=== PATIENT | female | born 1995 | race Caucasian/White ===

== ENCOUNTER 2020-05-07 15:10 | Emergency (ER) | payer SELFPAY ==
[2020-05-07] MEDS ORDERED: TRAMADOL HCL 50 MG TABLET PO ONE (16:45)
--- NOTE | 2020-05-07 17:11 | ER Document Report ---
ED General - General Chief Complaint: Nausea/Vomiting Stated Complaint: NAUSEA/VOMITING Notes: Patient is a 25-year-old white female with a history of diabetes and gastr oparesis who presents to the emergency department with a chief complaint of gastroparesis flare. She states this began couple days ago. She states that she was seeing a field map technician in [facility] at the [facility] but she is recently moved here. She states she has had several endoscopies and gastric emptying studies and H. pylori tests and was found to have gastroparesis. She cannot take Reglan due to severe allergy. Reports she takes a scopolamine patch. She states recently she has had the same pains as her gastroparesis in the epigastric region accompanied by nausea and vomiting and decreased oral intake secondary to the pain. Denies any diarrhea or fever. No known sick contacts or known exposures to COVID-19. She states this feels very straightforward. Reports that she is taken tramadol in the past for pain relief. - Related Data Allergies/Adverse Reactions: acetaminophen [From Tylenol] Allergy (Verified 05/07/20 15:44) aspirin Allergy (Verified 05/07/20 15:44) codeine Allergy (Verified 05/07/20 15:44) metoclopramide [From Reglan] Allergy (Verified 05/07/20 15:44) omeprazole Allergy (Verified 05/07/20 15:44) peanut Allergy (Verified 05/07/20 15:44) soy Allergy (Verified 05/07/20 15:44) wheat Allergy (Verified 05/07/20 15:44) Past Medical History - Social History Smoking Status: Never Smoker Chew tobacco use (# tins/day): No Frequency of alcohol use: None Drug Abuse: None Family History: Reviewed & Not Pertinent Review of Systems - Review of Systems Constitutional: denies: Fever EENT: denies: Throat pain Cardiovascular: denies: Chest pain Respiratory: denies: Cough Gastrointestinal: Abdominal pain, Nausea, Vomiting. denies: Diarrhea Genitourinary: denies: Burning, Dysuria Female Genitourinary: denies: Vaginal discharge Musculoskeletal: denies: Muscle pain Skin: denies: Rash Hematologic/Lymphatic: denies: Easy bleeding Neurological/Psychological: denies: Headaches Physical Exam - Vital signs Vitals: Temp 98.4 F 05/07/20 15:44 - General General appearance: Appears well, Alert In distress: None - Respiratory Respiratory status: No respiratory distress Chest status: Nontender Breath sounds: Normal Chest palpation: Normal - Cardiovascular Rhythm: Regular Heart sounds: Normal auscultation Murmur: No - Abdominal Inspection: Normal Distension: No distension Bowel sounds: Normal Tenderness: Tender - Epigastric left upper and right upper quadrant Organomegaly: No organomegaly - Neurological Neuro grossly intact: Yes Cognition: Normal Orientation: AAOx4 - Psychological Associated symptoms: Normal affect, Normal mood - Skin Skin Temperature: Warm Skin Moisture: Dry Skin Color: Normal Course - Re-evaluation Re-evalutation: 05/07/20 18:43 Reevaluation at this time, patient is resting comfortably in the room. She is in no acute distress. She is stable and appropriate for discharge and outpatient follow-up. We will send her home with tramadol and Bactrim for the UTI on urinalysis. She will get established with a field map technician and primary here in the area now that she lives here. Counseled her regarding the importance of outpatient follow-up and advised that she return here any ER immediately with any new, persistent or worsening symptoms. She verbalized understood and agreed. - Vital Signs Vital signs: Temp Pulse Resp BP Pulse Ox 98.4 F 05/07/20 15:44 - Laboratory Result Diagrams: 05/07/20 15:40 05/07/20 15:40 Laboratory results interpreted by me: 05/07/20 05/07/20 05/07/20 15:40 15:40 15:40 Hgb 10.8 L Hct 32.6 L MCV 78 L MCH 25.9 L RDW 17.7 H Potassium 3.5 L Chloride 109 H AST 60 H ALT 74 H Creatine Kinase NT-Pro-B Natriuret Pep Urine Protein 30 H Urine Ketones TRACE H Urine Urobilinogen 2.0 H Leukocyte Esterase Rfl MODERATE H 05/07/20 05/07/20 15:40 15:40 Hgb Hct MCV MCH RDW Potassium Chloride AST ALT Creatine Kinase 394 H NT-Pro-B Natriuret Pep 643 H Urine Protein Urine Ketones Urine Urobilinogen Leukocyte Esterase Rfl Discharge - Discharge Clinical Impression: Gastroparesis Condition: Stable Disposition: HOME, SELF-CARE Instructions: Abdominal Pain ([facility]) Additional Instructions: Follow-up with your regular doctor in 2 to 3 days for reevaluation. Return here or any ER immediately with any new, persistent or worsening symptoms. Prescriptions: Tramadol HCl [Ultram 50 mg Tablet] 50 mg PO Q6HP PRN #12 tablet PRN Reason: Sulfamethoxazole/Trimethoprim [Bactrim Ds Tablet] 1 each PO BID #19 tablet Referrals: ALBERT MAYEN MD [ACTIVE STAFF] - Follow up as needed
[2020-05-07 17:26] LABS: ABSOLUTE BASOPHILS # (AUTO) 0.1 10^3/uL (0.0-0.2); ABSOLUTE EOSINOPHILS # (AUTO) 0.1 10^3/uL (0.0-0.6); ABSOLUTE LYMPHOCYTES (AUTO) 1.8 10^3/uL (0.5-4.7); ABSOLUTE MONOCYTES (AUTO) 0.6 10^3/uL (0.1-1.4); ABSOLUTE NEUT (AUTO) 5.7 10^3/uL (1.7-8.2); BASOPHILS % (AUTO) 0.9 % (0-2); EOSINOPHILS % (AUTO) 1.6 % (0-6); HEMATOCRIT 32.6 % (36.0-47.0); HEMOGLOBIN 10.8 g/dL (12.0-15.5); LYMPHOCYTES % (AUTO) 21.6 % (13-45); MEAN CORPUSCULAR HEMOGLOBIN 25.9 pg (27.0-33.4); MEAN CORPUSCULAR HGB CONC 33.3 g/dL (32.0-36.0); MEAN CORPUSCULAR VOLUME 78 fl (80-97); PLATELET COUNT 350 10^3/uL (150-450); RED BLOOD COUNT 4.19 10^6/uL (3.72-5.28); RED CELL DISTRIBUTION WIDTH 17.7 % (11.5-14.0); SEGMENTED NEUTROPHILS % (AUTO) 68.9 % (42-78); TOTAL CELLS COUNTED % (AUTO) 100 %; WHITE BLOOD COUNT 8.2 10^3/uL (4.0-10.5)
[2020-05-07 17:31] LABS: APPEARANCE,URINE TURBID; BILIRUBIN,URINE NEGATIVE (NEGATIVE); COLOR,URINE AMBER; GLUCOSE, URINE NEGATIVE (NEGATIVE); KETONES,URINE TRACE mg/dL (NEGATIVE); PROTEIN,URINE 30 mg/dL (NEGATIVE); URINE SPECIFIC GRAVITY 1.018
[2020-05-07 17:34] LABS: ALBUMIN 4.1 g/dL (3.5-5.0); ALKALINE PHOSPHATASE 67 U/L (38-126); ANION GAP 6 (5-19); ASPARTATE AMINO TRANSFERASE 60 U/L (14-36); BILIRUBIN,TOTAL 0.8 mg/dL (0.2-1.3); BLOOD UREA NITROGEN 8 mg/dL (7-20); CARBON DIOXIDE 25 mmol/L (22-30); CHLORIDE 109 mmol/L (98-107); GLUCOSE 104 mg/dL (75-110); POTASSIUM 3.5 mmol/L (3.6-5.0); TOTAL PROTEIN 6.9 g/dL (6.3-8.2)
[2020-05-07 18:21] LABS: CREATINE KINASE MB 0.54 ng/mL (<4.55); NT PRO BNP 643 pg/mL (<125)
[2020-05-07 18:22] LABS: TROPONIN I < 0.012 ng/mL
[2020-05-07] MEDS ORDERED: FLUCONAZOLE 100 MG TABLET PO ONE (18:39)
[2020-05-07] MEDS ORDERED: SULFAMETHOXAZOLE/TRIMETHOPRIM 800-160 MG TABLET PO ONE (18:39)
[2020-05-07 19:07] VITALS: BP 148/91
== END 2020-05-07 19:03 | disposition home or self-care (01) ==
LOC: ER 15:10
DX: E11.43 Type 2 diabetes mellitus with diabetic autonomic (poly)neuropathy (principal); K31.84 Gastroparesis; R11.2 Nausea with vomiting, unspecified; Z88.6 Allergy status to analgesic agent; Z91.010 Allergy to peanuts
CPT/HCPCS: 36415; 80053; 81001; 82550; 82553; 83690; 83880; 84484; 85025; 99283

== ENCOUNTER 2020-06-09 16:46 | Emergency (ER) | payer SELFPAY ==
--- NOTE | 2020-06-09 17:52 | ER Document Report ---
ED Medical Screen (RME) - General Chief Complaint: Lower Abdominal Pain Stated Complaint: ABDOMINAL PAIN 4 WEEKS PREG Time Seen by Provider: 06/09/20 17:48 Mode of Arrival: Ambulatory Information source: Patient Notes: HPI; 25-year-old female 2 para 1 presents to the emergency room complaining of right lower quadrant pain that started earlier today. LMP May 01. States she had a positive home test about 3 to 4 days ago. Denies any bleeding, no discharge. No current OB care. Describes the pain as aching and cramping no meds for pain. PE: Alert and oriented x3. Lungs: Clear to auscultation without rales, rhonchi, wheezes. Heart: Regular rate and rhythm without murmurs, rubs, gallops. I have greeted and performed a rapid initial assessment of this patient. A c omprehensive ED assessment and evaluation of the patient, analysis of test results and completion of the medical decision making process will be conducted by additional ED providers. I have specifically instructed the patient or family members with the patient to immediately return to any nursing staff should anything change in the patient's condition or with their chief complaint. TRAVEL OUTSIDE OF THE [place] IN LAST 30 DAYS: No - Related Data Allergies/Adverse Reactions: acetaminophen [From Tylenol] Allergy (Verified 05/07/20 15:44) aspirin Allergy (Verified 05/07/20 15:44) codeine Allergy (Verified 05/07/20 15:44) metoclopramide [From Reglan] Allergy (Verified 05/07/20 15:44) omeprazole Allergy (Verified 05/07/20 15:44) peanut Allergy (Verified 05/07/20 15:44) soy Allergy (Verified 05/07/20 15:44) wheat Allergy (Verified 05/07/20 15:44) Physical Exam - Vital signs Vitals: Temp Pulse Resp BP Pulse Ox 98.7 F 89 18 145/79 H 99 06/09/20 17:33 06/09/20 17:33 06/09/20 17:33 06/09/20 17:33 06/09/20 17:33 Course - Vital Signs Vital signs: Temp Pulse Resp BP Pulse Ox 98.7 F 89 18 145/79 H 99 06/09/20 17:33 06/09/20 17:33 06/09/20 17:33 06/09/20 17:33 06/09/20 17:33
[2020-06-09 18:16] LABS: ABSOLUTE BASOPHILS # (AUTO) 0.1 10^3/uL (0.0-0.2); ABSOLUTE EOSINOPHILS # (AUTO) 0.2 10^3/uL (0.0-0.6); ABSOLUTE LYMPHOCYTES (AUTO) 1.7 10^3/uL (0.5-4.7); ABSOLUTE MONOCYTES (AUTO) 0.5 10^3/uL (0.1-1.4); ABSOLUTE NEUT (AUTO) 6.7 10^3/uL (1.7-8.2); BASOPHILS % (AUTO) 0.9 % (0-2); EOSINOPHILS % (AUTO) 2.5 % (0-6); HEMATOCRIT 33.6 % (36.0-47.0); HEMOGLOBIN 11.2 g/dL (12.0-15.5); LYMPHOCYTES % (AUTO) 18.6 % (13-45); MEAN CORPUSCULAR HEMOGLOBIN 26.3 pg (27.0-33.4); MEAN CORPUSCULAR HGB CONC 33.3 g/dL (32.0-36.0); MEAN CORPUSCULAR VOLUME 79 fl (80-97); MONOCYTES % (AUTO) 5.8 % (3-13); PLATELET COUNT 367 10^3/uL (150-450); RED BLOOD COUNT 4.26 10^6/uL (3.72-5.28); RED CELL DISTRIBUTION WIDTH 17.6 % (11.5-14.0); SEGMENTED NEUTROPHILS % (AUTO) 72.2 % (42-78); TOTAL CELLS COUNTED % (AUTO) 100 %; WHITE BLOOD COUNT 9.3 10^3/uL (4.0-10.5)
[2020-06-09 18:27] LABS: APPEARANCE,URINE SLIGHTLY-CLOUDY; BILIRUBIN,URINE NEGATIVE (NEGATIVE); CALCIUM OXALATE CRYSTALS,URINE RARE /HPF; COLOR,URINE YELLOW; GLUCOSE, URINE NEGATIVE (NEGATIVE); KETONES,URINE NEGATIVE (NEGATIVE); LEUKOCYTE ESTERASE,URINE TRACE (NEGATIVE); NITRITE,URINE NEGATIVE (NEGATIVE); PROTEIN,URINE 30 mg/dL (NEGATIVE); URINE SPECIFIC GRAVITY 1.021
[2020-06-09 18:35] LABS: ALBUMIN 4.1 g/dL (3.5-5.0); ALKALINE PHOSPHATASE 59 U/L (38-126); ASPARTATE AMINO TRANSFERASE 36 U/L (14-36); BILIRUBIN,TOTAL 0.6 mg/dL (0.2-1.3); BLOOD UREA NITROGEN 8 mg/dL (7-20); CALCIUM 9.3 mg/dL (8.4-10.2); CARBON DIOXIDE 28 mmol/L (22-30); CHLORIDE 105 mmol/L (98-107); GLUCOSE 109 mg/dL (75-110); POTASSIUM 4.1 mmol/L (3.6-5.0); TOTAL PROTEIN 6.9 g/dL (6.3-8.2)
--- NOTE | 2020-06-09 18:54 | RADIOLOGY REPORT (SQ) ---
EXAM DESCRIPTION: U/S OB TRANSVAG W/DOPPLER IMAGES COMPLETED DATE/TIME: 06/09/2020 6:38 pm REASON FOR STUDY: rlq pain COMPARISON: None. TECHNIQUE: Transvaginal static and realtime grayscale images acquired of the pelvis. Additional carla cted spectral and color Doppler images recorded. All images stored on PACs. CLINICAL AGE: 5 week 4 day. B[facility]02/05/2021. LIMITATIONS: None. FINDINGS: UTERUS: No visualized intrauterine . There is a round cystic lesion in the cervi samir canal. RIGHT ADNEXA: Normal ovary with normal vascular flow. No adnexal free fluid. No adnexal masses. Multiple follicles. LEFT ADNEXA: Normal ovary with normal vascular flow. No adnexal free fluid. No adnexal masses. Multiple follicles. FREE FLUID: None. OTHER: No other significant finding. IMPRESSION: NO VISUALIZED INTRAUTERINE . ROUND CYSTIC LESION IN THE CERVICAL CANAL COULD B E AN INCIDENTAL NABOTHIAN CYST. CANNOT EXCLUDE A SMALL GESTATIONAL SAC WHICH IS ECTOPICALLY IMPLANTE D IN THE CERVIX. MEASUREMENTS WOULD CORRESPOND WITH A 5 WEEK 2 DAY GESTATION. bHCG LEVEL NOT AVAILABLE FOR CORRELATION WITH US FINDINGS. FOLLOW-UP ULTRASOUND AND SERIAL BHCG LEVELS STRONGLY RECOMMENDED TO ACCURATELY ASSESS STATU S. TECHNICAL DOCUMENTATION: JOB ID: [id number] 2010 [employer]- All Rights Reserved Reading location - IP/workstation name: [email or web address]
[2020-06-09 18:55] LABS: ANION GAP 4 (5-19)
[2020-06-09] MEDS ORDERED: CEPHALEXIN 500 MG CAPSULE PO ONE (18:57)
--- NOTE | 2020-06-09 18:57 | ER Document Report ---
ED GI/ - General Chief Complaint: Lower Abdominal Pain Stated Complaint: ABDOMINAL PAIN 4 WEEKS PREG Time Seen by Provider: 06/09/20 17:48 Primary Care Provider: [facility] [Provider Group] - Follow up as needed [facility] [NO LOCAL MD] - Follow up tomorrow Mode of Arrival: Ambulatory Information source: Patient Notes: Patient presents complaining of lower pelvic pain that started today. Patient states she has had similar pain off and on over the past 2 weeks. Patient denies any vaginal bleeding or discharge. Patient denies any concern about STI. Patient states she just recently had a positive test 4 days ago. Patient is G2, P1. Patient denies any urinary symptoms. Patient does states she has an upcoming appointment with an GAS SINGER in 4 days. TRAVEL OUTSIDE OF THE [place] IN LAST 30 DAYS: No - HPI Patient complains to provider of: Pelvic pain, . No: Vaginal discharge, Vomiting Onset: Other - Off and on x2 weeks Timing/Duration: Waxing and waning Quality of pain: Achy Pain Level: 1 Location: Pelvis Vaginal bleeding (Compared to normal period): None Menstrual period history: Sexual history: Active. denies: STD exposure Associated symptoms: denies: Dysuria, Fever, Nausea, Urinary hesitancy, Urinary frequency, Urinary retention, Urinary urgency, Vaginal discharge, Vomiting Exacerbated by: Denies Relieved by: Denies Similar symptoms previously: No Recently seen / treated by doctor: Yes - Related Data Allergies/Adverse Reactions: acetaminophen [From Tylenol] Allergy (Verified 05/07/20 15:44) aspirin Allergy (Verified 05/07/20 15:44) codeine Allergy (Verified 05/07/20 15:44) metoclopramide [From Reglan] Allergy (Verified 05/07/20 15:44) omeprazole Allergy (Verified 05/07/20 15:44) peanut Allergy (Verified 05/07/20 15:44) soy Allergy (Verified 05/07/20 15:44) wheat Allergy (Verified 05/07/20 15:44) Home Medications: venlafaxine, vitatab, claritin, singulair Past Medical History - General Information source: Patient - Social History Smoking Status: Never Smoker Chew tobacco use (# tins/day): No Frequency of alcohol use: None Drug Abuse: None Occupation: None Lives with: Spouse/Significant other Family History: Reviewed & Not Pertinent Patient has homicidal ideation: No - Past Medical History Cardiac Medical History: Reports: Hx Hypercholesterolemia Pulmonary Medical History: Reports: Hx Asthma GI Medical History: Reports: Other - Gastroparesis Past Surgical History: Reports: Hx Cholecystectomy Review of Systems - Review of Systems Constitutional: No symptoms reported. denies: Fever, Recent illness EENT: No symptoms reported Cardiovascular: No symptoms reported. denies: Chest pain Respiratory: No symptoms reported. denies: Cough Gastrointestinal: Abdominal pain. denies: Diarrhea, Nausea, Vomiting Genitourinary: No symptoms reported. denies: Dysuria, Flank pain Female Genitourinary: . denies: Vaginal discharge, Vaginal bleeding Musculoskeletal: No symptoms reported. denies: Back pain Skin: No symptoms reported Hematologic/Lymphatic: No symptoms reported Neurological/Psychological: No symptoms reported Physical Exam - Vital signs Vitals: Temp Pulse Resp BP Pulse Ox 98.7 F 89 18 145/79 H 99 06/09/20 17:33 06/09/20 17:33 06/09/20 17:33 06/09/20 17:33 06/09/20 17:33 - General General appearance: Appears well, Alert In distress: None - HEENT Head: Normocephalic, Atraumatic Eyes: Normal Conjunctiva: Normal Nasal: Normal Mouth/Lips: Normal Mucous membranes: Normal Neck: Normal, Supple. No: Lymphadenopathy - Respiratory Respiratory status: No respiratory distress Chest status: Nontender Breath sounds: Normal. No: Rales, Rhonchi, Stridor, Wheezing Chest palpation: Normal - Cardiovascular Rhythm: Regular Heart sounds: S1 appreciated, S2 appreciated Murmur: No - Abdominal Inspection: Morbidly Obese Distension: No distension Bowel sounds: Normal Tenderness: Tender - suprapubic. No: McBurney's point, London's sign, Guarding Organomegaly: No organomegaly - Genitourinary External exam: Normal Speculum exam: Cervix closed, Vaginal discharge Vaginal bleeding: None Bimanuel exam: Normal. No: Cervical motion tender, Adnexal tenderness Notes: MACIEL Knox as standby - Back Back: Normal, Nontender. No: CVA tenderness - Extremities General upper extremity: Normal inspection, Nontender, Normal ROM General lower extremity: Normal inspection, Nontender, Normal ROM - Neurological Neuro grossly intact: Yes Cognition: Normal Katia Coma Scale Eye Opening: Spontaneous [place] Coma Scale Verbal: Oriented [place] Coma Scale Motor: Obeys Commands [place] Coma Scale Total: 15 - Psychological Associated symptoms: Normal affect, Normal mood - Skin Skin Temperature: Warm Skin Moisture: Dry Skin Color: Normal Course - Re-evaluation Re-evalutation: 06/09/20 19:03 Patient's quantitative hCG test negative, patient with findings on ultrasound worrisome for possible nabothian cyst, will perform pelvic examination to further evaluate patient's pelvic pain symptoms. 06/09/20 19:35 Patient with vaginal discharge, gonorrhea chlamydia tests are pending at this time, patient treated empirically. Patient advised of negative quantitative hCG test. Patient encouraged to follow-up with her cotton wringer for further evaluation. Patient without any right lower quadrant tenderness, no for appendicitis at this time. Patient encouraged to return for any new or worsening symptoms at this time. Patient presents with abdominal pain without signs of peritonitis or other life-threatening or serious etiology. Patient appears stable for discharge and has been instructed to return immediately if the symptoms worsen in any way, or in 12 hours if not improved for reevaluation. The patient has been instructed to return if the symptoms worsen or change in any way. - Vital Signs Vital signs: Temp Pulse Resp BP Pulse Ox 98.7 F 89 18 145/79 H 99 06/09/20 17:33 06/09/20 17:33 06/09/20 17:33 06/09/20 17:33 06/09/20 17:33 - Laboratory Result Diagrams: 06/09/20 17:55 06/09/20 17:55 Laboratory results interpreted by me: 06/09/20 06/09/20 06/09/20 17:55 17:55 17:55 Hgb 11.2 L Hct 33.6 L MCV 79 L MCH 26.3 L RDW 17.6 H Anion Gap 4 L Urine Protein 30 H Urine Blood SMALL H Urine Urobilinogen 4.0 H Ur Leukocyte Esterase TRACE H Urine Ascorbic Acid 40 H 06/09/20 19:37 Labs- All tests 24 hr 06/09/20 06/09/20 06/09/20 17:55 17:55 17:55 WBC 9.3 RBC 4.26 Hgb 11.2 L Hct 33.6 L MCV 79 L MCH 26.3 L MCHC 33.3 RDW 17.6 H Plt Count 367 Lymph % (Auto) 18.6 Colbert % (Auto) 5.8 Eos % (Auto) 2.5 Baso % (Auto) 0.9 Absolute Neuts (auto) 6.7 Absolute Lymphs (auto) 1.7 Absolute Monos (auto) 0.5 Absolute Eos (auto) 0.2 Absolute Basos (auto) 0.1 Seg Neutrophils % 72.2 Sodium 137.4 Potassium 4.1 Chloride 105 Carbon Dioxide 28 Anion Gap 4 L BUN 8 Creatinine 0.70 Est GFR ( Amer) > 60 Est GFR (MDRD) Non-Af > 60 Glucose 109 Calcium 9.3 Total Bilirubin 0.6 Direct Bilirubin 0.0 Neonat Total Bilirubin Not Reportable Neonat Direct Bilirubin Not Reportable Neonat Indirect Bili Not Reportable AST 36 ALT 26 Alkaline Phosphatase 59 Total Protein 6.9 Albumin 4.1 Beta HCG, Quant < 2.39 Total Beta HCG NEGATIVE Urine Color YELLOW Urine Appearance SLIGHTLY-CLOUDY Urine pH 5.0 Ur Specific [place] 1.021 Urine Protein 30 H Urine Glucose (UA) NEGATIVE Urine Ketones NEGATIVE Urine Blood SMALL H Urine Nitrite NEGATIVE Urine Bilirubin NEGATIVE Urine Urobilinogen 4.0 H Ur Leukocyte Esterase TRACE H Urine WBC (Auto) 4 Urine RBC (Auto) 5 Urine Bacteria (Auto) TRACE Squamous Epi Cells Auto 5 Calcium Oxalate Cr Auto RARE Urine Mucus (Auto) MANY Urine Ascorbic Acid 40 H Trichomonas (Wet Prep) Vaginal WBC Vaginal RBC Vaginal Yeast 06/09/20 19:21 WBC RBC Hgb Hct MCV MCH MCHC RDW Plt Count Lymph % (Auto) Colbert % (Auto) Eos % (Auto) Baso % (Auto) Absolute Neuts (auto) Absolute Lymphs (auto) Absolute Monos (auto) Absolute Eos (auto) Absolute Basos (auto) Seg Neutrophils % Sodium Potassium Chloride Carbon Dioxide Anion Gap BUN Creatinine Est GFR ( Amer) Est GFR (MDRD) Non-Af Glucose Calcium Total Bilirubin Direct Bilirubin Neonat Total Bilirubin Neonat Direct Bilirubin Neonat Indirect Bili AST ALT Alkaline Phosphatase Total Protein Albumin Beta HCG, Quant Total Beta HCG Urine Color Urine Appearance Urine pH Ur Specific [place] Urine Protein Urine Glucose (UA) Urine Ketones Urine Blood Urine Nitrite Urine Bilirubin Urine Urobilinogen Ur Leukocyte Esterase Urine WBC (Auto) Urine RBC (Auto) Urine Bacteria (Auto) Squamous Epi Cells Auto Calcium Oxalate Cr Auto Urine Mucus (Auto) Urine Ascorbic Acid Trichomonas (Wet Prep) NO TRICHOMONAS SEEN Vaginal WBC FEW WBCS SEEN Vaginal RBC RARE RBCS SEEN Vaginal Yeast NO YEAST SEEN - Diagnostic Test Radiology reviewed: Reports reviewed Discharge - Discharge Clinical Impression: Pelvic pain, Vaginal discharge Condition: Stable Disposition: HOME, SELF-CARE Instructions: Azithromycin ([facility]), Pelvic Pain ([facility]), Rocephin ([facility]) Additional Instructions: Return immediately for any new or worsening symptoms Followup with your primary care provider, call tomorrow to make a followup appointment Cultures are pending, we will call if you need any different treatment Follow-up with the cotton wringer on Saturday as planned Referrals: [facility] [Provider Group] - Follow up as needed [facility] [NO LOCAL MD] - Follow up tomorrow
[2020-06-09] MEDS ORDERED: CEFTRIAXONE INJ 250 MG VIAL IM ONE (19:21)
[2020-06-09] MEDS ORDERED: AZITHROMYCIN 250 MG TABLET PO ONE (19:21)
[2020-06-09] MEDS ORDERED: LIDOCAINE 1% INJ (10 MG/ML) 10 ML MDV INJ ONE (19:22)
[2020-06-09 19:30] LABS: RBCS (WET MOUNT) RARE RBCS SEEN; T.VAGINALIS (WET MOUNT) NO TRICHOMONAS SEEN; WBCS (WET MOUNT) FEW WBCS SEEN; YEAST (WET MOUNT) NO YEAST SEEN
[2020-06-09 20:08] VITALS: BP 129/77
[2020-06-09 20:57] LABS: CHLAM PCR NOT DETECTED (NOT DETECT)
== END 2020-06-09 20:09 | disposition home or self-care (01) ==
LOC: ER 16:46
DX: R10.2 Pelvic and perineal pain (principal); N89.8 Other specified noninflammatory disorders of vagina; R10.30 Lower abdominal pain, unspecified; J45.909 Unspecified asthma, uncomplicated; Z88.8 Allergy status to other drugs, medicaments and biological substances; Z79.899 Other long term (current) drug therapy; E66.01 Morbid (severe) obesity due to excess calories
CPT/HCPCS: 99285; 96372; 36415; 87086; 87210; 84702; 85025; 80053; 81001; 87491; 87591; 76817; 93976; J0696

== ENCOUNTER 2020-06-29 20:59 | Emergency (ER) | payer SELFPAY ==
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
[2020-06-30 01:02] LABS: ABSOLUTE BASOPHILS # (AUTO) 0.1 10^3/uL (0.0-0.2); ABSOLUTE EOSINOPHILS # (AUTO) 0.1 10^3/uL (0.0-0.6); ABSOLUTE LYMPHOCYTES (AUTO) 2.3 10^3/uL (0.5-4.7); ABSOLUTE MONOCYTES (AUTO) 0.6 10^3/uL (0.1-1.4); ABSOLUTE NEUT (AUTO) 8.9 10^3/uL (1.7-8.2); BASOPHILS % (AUTO) 0.7 % (0-2); EOSINOPHILS % (AUTO) 1.2 % (0-6); HEMATOCRIT 34.3 % (36.0-47.0); HEMOGLOBIN 11.3 g/dL (12.0-15.5); LYMPHOCYTES % (AUTO) 19.1 % (13-45); MEAN CORPUSCULAR HEMOGLOBIN 25.9 pg (27.0-33.4); MEAN CORPUSCULAR HGB CONC 32.9 g/dL (32.0-36.0); MEAN CORPUSCULAR VOLUME 79 fl (80-97); MONOCYTES % (AUTO) 5.2 % (3-13); PLATELET COUNT 349 10^3/uL (150-450); RED BLOOD COUNT 4.36 10^6/uL (3.72-5.28); RED CELL DISTRIBUTION WIDTH 17.3 % (11.5-14.0); SEGMENTED NEUTROPHILS % (AUTO) 73.8 % (42-78); TOTAL CELLS COUNTED % (AUTO) 100 %
[2020-06-30 01:20] LABS: ALKALINE PHOSPHATASE 68 U/L (38-126); ANION GAP 12 (5-19); ASPARTATE AMINO TRANSFERASE 22 U/L (14-36); BILIRUBIN,DIRECT 0.2 mg/dL (0.0-0.4); BILIRUBIN,TOTAL 0.7 mg/dL (0.2-1.3); BLOOD UREA NITROGEN 5 mg/dL (7-20); CALCIUM 9.1 mg/dL (8.4-10.2); CARBON DIOXIDE 23 mmol/L (22-30); CHLORIDE 105 mmol/L (98-107); GLUCOSE 93 mg/dL (75-110); TOTAL PROTEIN 6.5 g/dL (6.3-8.2)
[2020-06-30] MEDS ORDERED: AZITHROMYCIN 250 MG TABLET PO ONE (02:08)
[2020-06-30] MEDS ORDERED: LEVONORGESTREL 1.5 MG TABLET (1 TAB/ER-USE) PO ONE (02:23)
[2020-06-30 02:26] LABS: RBCS (WET MOUNT) NO RBCS SEEN; T.VAGINALIS (WET MOUNT) NO TRICHOMONAS SEEN; WBCS (WET MOUNT) 1+ WBCS SEEN; YEAST (WET MOUNT) NO YEAST SEEN
[2020-06-30 02:32] LABS: CHLAM PCR NOT DETECTED (NOT DETECT)
[2020-06-30 02:57] LABS: APPEARANCE,URINE SLIGHTLY-CLOUDY; BILIRUBIN,URINE NEGATIVE (NEGATIVE); COLOR,URINE YELLOW; GLUCOSE, URINE NEGATIVE (NEGATIVE); KETONES,URINE 20 mg/dL (NEGATIVE); LEUKOCYTE ESTERASE,URINE NEGATIVE (NEGATIVE); NITRITE,URINE NEGATIVE (NEGATIVE); PROTEIN,URINE NEGATIVE (NEGATIVE); URINE SPECIFIC GRAVITY 1.025
[2020-06-30 03:05] LABS: ADD MANUAL MICROSCOPIC YES; BACTERIA,URINE TRACE /HPF
[2020-06-30 03:10] LABS: URINE AMPHETAMINES SCREEN NEGATIVE; URINE BARBITURATES SCREEN NEGATIVE; URINE BENZODIAZEPINES SCREEN NEGATIVE; URINE COCAINE SCREEN NEGATIVE; URINE MARIJUANA (THC) SCREEN NEGATIVE; URINE METHADONE SCREEN NEGATIVE; URINE PHENCYCLIDINE SCREEN NEGATIVE
[2020-06-30 03:11] VITALS: BP 129/88
== END 2020-06-30 03:15 | disposition home or self-care (01) ==
LOC: ER 20:59
DX: T76.21XA Adult sexual abuse, suspected, initial encounter (principal); Z59.0 Homelessness; J45.909 Unspecified asthma, uncomplicated; I10 Essential (primary) hypertension; Z88.8 Allergy status to other drugs, medicaments and biological substances; Z88.0 Allergy status to penicillin; Z88.6 Allergy status to analgesic agent; Z88.5 Allergy status to narcotic agent; Z91.010 Allergy to peanuts; Z91.018 Allergy to other foods
CPT/HCPCS: 99283; 36415; 87086; 87210; 85025; 81025; 86592; 80053; 81001; 86701; 80307; 87491; 87591; A9270